=== PATIENT | female | born 1980 | race Caucasian/White ===

== ENCOUNTER → 2020-06-14 13:57 | Outpatient (CLI) | payer BC, SELFPAY ==
--- NOTE | 2020-06-14 19:12 | PC.NURSE ---
patient notified of positive covid test
== END ==
PROVIDERS: PCP Internal Medicine; Visit Provider Internal Medicine
DX: Z20.822 Contact with and (suspected) exposure to COVID-19 (principal); U07.1 COVID-19
CPT/HCPCS: U0003

== ENCOUNTER 2021-12-13 18:46 | Emergency (ER) | payer BC, SELFPAY ==
--- NOTE | 2021-12-13 18:53 | XR_ITS ---
PROCEDURE INFORMATION: Exam: XR Chest Exam date and time: 12/13/2021 6:52 PM Age: 41 years old Clinical indication: On breathing; Patient HX: Pain after playing basketball 2 nights ago TECHNIQUE: Imaging protocol: Radiologic exam of the chest. Views: 2 views. COMPARISON: No relevant prior studies available. FINDINGS: Lungs: No acute pulmonary findings. No pulmonary consolidation. Lung volumes within normal limits. Question tiny granuloma or prominent dense vascular shadow in the mid-lateral right lung projected over the posterior right 8th rib on the frontal view, no definite nodule is seen on the lateral view. Pulmonary vessels are not congested. Pleural spaces: Unremarkable. No significant pleural effusion. No pneumothorax. Heart/Mediastinum: The cardiac silhouette is normal. Bones/joints: There are spinal degenerative changes, with multilevel disc narrrowing and spondylosis. Soft tissues: No acute findings in the soft tissues, as visualized. IMPRESSION: No acute findings.
[2021-12-13 19:06] VITALS: BP 140/89; PULSE 116; RESP 21; TEMP 36.9; O2SAT 97; BMI 38.7
--- NOTE | 2021-12-13 19:17 | HMH.EDUTC ---
[facility] – [place] Disposition <ShaneMaco - Last Filed: 12/13/21 22:08> Condition on Discharge: Fair <Stephen Leach - Last Filed: 12/14/21 00:33> Clinical Impression: COVID-19 Chest pain Qualifiers: Chest pain type: unspecified Qualified Code(s): R07.9 - Chest pain, unspecified Disposition: Home, Self-Care Instructions: DI for COVID-19 (Suspected or Confirmed ) Additional Instructions: use meds and see pcp for follow up Referrals: Que James MD [Primary Care Provider] - Forms: Work/School Release Medical Decision Making - Lab Data Lab results reviewed: Yes: I reviewed the patient's lab results. Result diagrams: 12/13/21 19:40 12/13/21 19:40 - Radiology Data #1 Image(s): Chest Image Reviewed: Yes I have reviewed radiologist's interpretation Preliminary Findings: Normal/NAD - CT Data CT Scan: Chest Time Received: 22:[address] Reviewed: Yes: I have viewed the radiologist's interpretation Preliminary Findings: Normal/NAD - ECG Data Tracing #1 Normal Sinus Rhythm: Yes Ischemic changes: non-specific ST-T wave changes <Maco Lynn - Last Filed: 12/13/21 22:08> - Medical Records Medical records reviewed: No: I reviewed the patient's medical records. - Ashish Inquiry Pt receiving controlled substance: No - Lab Data Result diagrams: 12/13/21 19:40 12/13/21 19:40 <Stephen Leach - Last Filed: 12/14/21 00:33> Vital Signs: 12/13/21 19:06 12/13/21 19:41 12/13/21 20:00 Temperature 98.5 F 97.9 F Temperature Source Oral Oral Pulse Rate Pulse Rate [Left] 116 H 121 H 106 H Respiratory Rate 21 17 Blood Pressure Blood Pressure [Right Arm] 140/89 147/99 H 147/99 H Blood Pressure Mean [Right Arm] 106 115 115 Blood Pressure Source [Right Arm] Automatic Cuff Blood Pressure Position [Right Arm] Sitting 02 Sat by Pulse Oximetry 97 98 100 Oxygen Delivery Method Room Air Room Air 12/13/21 20:30 12/13/21 22:16 Temperature 99.2 F Temperature Source Oral Pulse Rate 102 H Pulse Rate [Left] 108 H Respiratory Rate 18 Blood Pressure 165/99 H Blood Pressure [Right Arm] 149/98 H Blood Pressure Mean [Right Arm] 115 Blood Pressure Source [Right Arm] Blood Pressure Position [Right Arm] 02 Sat by Pulse Oximetry 100 Oxygen Delivery Method Room Air Room Air - Lab Data Lab Results 12/13/21 19:40: WBC 9.4, RBC 4.69, Hgb 12.4, Hct 40.7, MCV 86.8, MCH 26.5 L, MCHC 30.6 L, RDW 13.2, Plt Count 297, MPV 7.8, Neut % (Auto) 80.9 H, Lymph % (Auto) 8.8 L, Cassia % (Auto) 6.5, Eos % (Auto) 2.2, Baso % (Auto) 1.7, Neut # (Auto) 7.6, Lymph # (Auto) 0.8, Cassia # (Auto) 0.6, Eos # (Auto) 0.2, Baso # (Auto) 0.2, ESR 17 12/13/21 19:40: Sodium 135 L, Potassium 3.4 L, Chloride 99, Carbon Dioxide 27, Anion Gap 12.4, BUN 7, Creatinine 0.70, Estimated Creat Clear 182, Estimated GFR 92, Est GFR ( Amer) 112, Glucose 138 H, Calcium 9.5, Total Bilirubin 0.2, AST 46 H, ALT 43, Alkaline Phosphatase 68, C-Reactive Protein 29.1 H, Total Protein 7.6, Albumin 4.4, Globulin 3.2, Albumin/Globulin Ratio 1.4 12/13/21 19:49: Urine Color Yellow, Urine Appearance Clear, Urine pH 6.0, Ur Specific [place] 1.015, Urine Protein Negative, Urine Glucose (UA) Negative, Urine Ketones Negative, Urine Blood Negative, Urine Nitrate Negative, Urine Bilirubin Negative, Urine Urobilinogen 0.2, Ur Leukocyte Esterase Negative, Urine RBC None, Urine WBC Occasional, Ur Squamous Epith Cells 5-10, Urine Bacteria None 12/13/21 19:49: Urine HCG, Qual Negative 12/13/21 21:09: SARS-CoV-2 (PCR) Detected A, Influenza A Untype (PCR) Not detected, Influenza Type B (PCR) Not detected Orders (Tests/Meds): ED MEDICATIONS Discontinued Medications Generic Name Dose Route Start Last Admin Trade Name Freq PRN Reason Stop Dose Admin Dexamethasone Sodium Phosphate 10 mg 12/13/21 22:12 12/13/21 22:15 Dexamethasone 4mg/Ml 5ml Mdv IV 12/13/21 22:13 10 mg ONCE ONE Administration Sodium Chloride 1,000 mls @ 999 mls/hr 12/13
--- NOTE | 2021-12-13 19:40 | ECG_ITS ---
APPROVED REPORT Exam: Resting ECG HR:119 bpm ECG Measurements Heart Rate 119 AXES CA 132 P 65 QRSd 84 QRS 59 QT 324 T 49 QTc 395 Conclusion SINUS TACHYCARDIA ABNORMAL RHYTHM ECG UNCONFIRMED REPORT Electronically signed by : Antony Amos MD 12/14/2021 21:28:48
[2021-12-13 19:41] VITALS: BP 147/99; PULSE 121; RESP 17; TEMP 36.6; O2SAT 98; BMI 38.7
--- NOTE | 2021-12-13 19:49 | CT_ITS ---
PROCEDURE INFORMATION: Exam: CTA Chest With Contrast Exam date and time: 12/13/2021 8:13 PM Age: 41 years old Clinical indication: Pain; On breathing and other: SOB; Additional info: Dyspnea with exertion, tachycardia, chest pain TECHNIQUE: Imaging protocol: Computed tomographic angiography of the chest with contrast. 3D rendering (Not supervised by radiologist): MIP and/or 3D reconstructed images were created by the technologist. Radiation optimization: All CT scans at this facility use at least one of these dose optimization techniques: automated exposure control; mA and/or kV adjustment per patient size (includes targeted exams where dose is matched to clinical indication); or iterative reconstruction. Contrast material: ISOVUE 370; Contrast volume: 70 ml; Contrast route: INTRAVENOUS (IV); COMPARISON: CR XR CHEST 2V 12/13/2021 6:52 PM FINDINGS: Pulmonary arteries: Bolus timing is insufficient for definitive exclusion of small peripheral pulmonary emboli. Enhanced HU density in the main pulmonary artery approximately 200 HU, less than target of 250 HU or greater. There are also several streak artifacts greatest at the upper right hilum, limiting the exam. Heterogeneous appearance of several vessels particularly in the right upper lobe, most likely due to technical limitations and artifacts. No large central or segmental emboli. Aorta: There is no aortic aneurysm. Some motion artifacts/pulsation artifacts limiting the study, particularly in the ascending aorta. No definite dissection seen in the chest. Lungs: Calcified right pulmonary granulomas. No suspicious noncalcified nodules. No consolidation. No evidence of significant vascular congestion. No rounded ground-glass lesions. Pleural spaces: Unremarkable. No significant pleural effusion. No pneumothorax. Heart: The heart is not enlarged. No significant pericardial effusion. No definite coronary artery calcification is visualized. Borderline elevated RV/LV ratio approximate 0.95, but there is no reflux of contrast into the IVC or hepatic veins to suggest acute right heart strain. Lymph nodes: Small calcified right mediastinal and hilar lymph nodes.No significantly enlarged lymph nodes by short axis criteria. Liver: Low-attenuation fatty appearance of the liver with periportal sparing. Borderline hepatomegaly incompletely imaged on this exam. Spleen: Splenomegaly approximate 14.5 cm long axis coronal image 42, with multiple calcified granulomas. Bones/joints: There are spinal degenerative changes, with multilevel disc narrrowing and spondylosis.There is no evidence of acute fracture. Soft tissues: There are no soft tissue masses or fluid collections. IMPRESSION: 1. Bolus timing is insufficient for definitive exclusion of small peripheral pulmonary emboli. No large central or segmental emboli. 2. No thoracic aortic aneurysm or evidence of dissection; pulsation artifacts. 3. Fatty liver. Hepatosplenomegaly. 4. Chronic granulomatous changes. 5. No acute pulmonary findings. No consolidation. 6. Additional nonemergency and chronic findings as above.
[2021-12-13 19:56] LABS: Microscopic, Urine URINE MICROSCOPIC (MICROSCOPIC)
[2021-12-13 19:58] LABS: Eosinophils # 0.2 K/mm3 (0.0-0.4); Eosinophils % 2.2 % (0.1-12.0); Hemoglobin 12.4 g/dL (12.2-16.2); Mean Corpuscular HGB Conc 30.6 g/dL (31.8-35.4); Monocytes # 0.6 K/mm3 (0.1-1.0); Neutrophils # 7.6 K/mm3 (1.8-7.8)
[2021-12-13 20:00] VITALS: BP 147/99; PULSE 106; O2SAT 100
[2021-12-13 20:01] LABS: Appearance,Urine CLEAR (Clear); Bilirubin,Urine Negative (Negative); Blood, Urine Negative (Negative); Color,Urine YELLOW (Yellow); Glucose,Urine (UA) Negative (Negative); Ketones,Urine Negative (Negative); Leukocyte Esterase,Urine Negative (Negative); Nitrate,Urine Negative (Negative); Protein,Urine Negative (Negative); Specific Gravity, Urine 1.015 (1.005-1.030); Urobilinogen,Urine 0.2 EU/dl (0.2)
[2021-12-13 20:01] LABS: Alanine Aminotransferase 43 U/L (12-78); Albumin Level 4.4 g/dl (3.5-5.0); Albumin/Globulin Ratio 1.4 (1.1-1.8); Alkaline Phosphatase 68 U/L (38-126); Anion Gap 12.4 mEq/L (5-15); Aspartate Amino Transferase 46 U/L (14-36); Bilirubin,Total 0.2 mg/dl (0.2-1.3); Blood Urea Nitrogen 7 mg/dl (7-17); Calcium 9.5 mg/dl (8.4-10.2); Carbon Dioxide 27 mmol/L (22.0-30.0); Chloride 99 mmol/L (98-107); Creatinine Clearance Estimated 182 mL/min (50-200); Estimated Glomerular Filt Rate 92 ml/min (>60); GFR (African American) 112 ML/MIN (>60); Globulin 3.2 g/dL (1.3-3.2); Glucose 138 mg/dl (74-100); Potassium 3.4 mmoL/L (3.5-5.1); Sodium 135 mmol/L (136-145); Total Protein,Serum 7.6 g/dl (6.3-8.2)
[2021-12-13 20:03] LABS: Basophils # 0.2 K/mm3 (0-0.2); Basophils % 1.7 % (0.1-2.0); Hematocrit 40.7 % (37.0-47.0); Lymphocytes # 0.8 K/mm3 (0.7-4.5); Lymphocytes % 8.8 % (10-50); Mean Corpuscular Hemoglobin 26.5 pg (27.0-31.2); Mean Corpuscular Volume 86.8 fl (81-99); Mean Platelet Volume 7.8 fl (7.4-10.4); Monocytes % 6.5 % (1.7-9.3); Neutrophils % 80.9 % (37.0-80.0); Platelet Count 297 K/mm3 (142-424); Red Blood Count 4.69 M/mm3 (4.20-5.40); Red Cell Distribution Width 13.2 % (11.5-17.5); White Blood Count 9.4 K/mm3 (4.8-10.8)
[2021-12-13 20:04] LABS: Urine Pregnancy, HCG Qual. Negative (Negative)
[2021-12-13 20:07] LABS: C-Reactive Protein 29.1 mg/L (0-4)
--- NOTE | 2021-12-13 20:09 | PC.NURSE ---
Pt given warm blanket for comfort. No other needs at this time.
--- NOTE | 2021-12-13 20:13 | PC.NURSE ---
Pt gone to RAD
--- NOTE | 2021-12-13 20:23 | PC.NURSE ---
Pt back from RAD
[2021-12-13 20:26] LABS: WBC,Urine Occasional #/hpf (0-3)
[2021-12-13 20:30] VITALS: BP 149/98; PULSE 108; O2SAT 100
[2021-12-13 20:32] LABS: Erythrocyte Sedimentation Rate 17 mm/hr (0-20)
--- NOTE | 2021-12-13 20:43 | PC.NURSE ---
Pt ambulatory to bathroom with no assistance.
[2021-12-13 21:17] LABS: Influenza A, PCR Not Detected (NotDetected); Influenza B, PCR Not Detected (NotDetected)
[2021-12-13 21:54] LABS: Coronavirus 19, PCR Detected (NotDetected)
[2021-12-13 22:16] VITALS: BP 165/99; PULSE 102; RESP 18; TEMP 37.3; O2SAT 98
== END 2021-12-13 22:25 | disposition home or self-care (01) ==
LOC: UTC 19:29 → ER 19:37
PROVIDERS: Emergency Provider Emergency Medicine; PCP Internal Medicine
DX: U07.1 COVID-19 (principal); R07.9 Chest pain, unspecified; J02.9 Acute pharyngitis, unspecified; R10.9 Unspecified abdominal pain; Z79.84 Long term (current) use of oral hypoglycemic drugs; Z79.899 Other long term (current) drug therapy
CPT/HCPCS: 71046; 71275; 80053; 81001; 81025; 85025; 85651; 86140; 93005; 96365; 96375; 99284; C9803; Q9967; U0003; U0005